=== PATIENT | female | born 1970 | race Caucasian/White ===

== ENCOUNTER 2020-03-22 15:01 | Outpatient (CLI) | payer OTHER, SELFPAY ==
--- NOTE | ~2020-03-22 | MM_ITS ---
EXAMINATION: MM screening joanna BI w delgado HISTORY: Screening mammogram TECHNIQUE: Craniocaudal and mediolateral oblique 3-D tomosynthesis images were obtained and synthetic 2-D images were generated. CAD analysis was submitted and interpreted. COMPARISON: 10/05/2016 bilateral digital screening mammogram BREAST PARENCHYMAL COMPOSITION: The breasts are heterogeneously dense, which may obscure small masses . FINDINGS: Stable mild asymmetry. Occasional benign calcifications.. There is no evidence of suspiciou s mass, calcification, or architectural distortion to suggest malignancy in either breast. There has been no suspicious interval change. IMPRESSION: 1. No mammographic evidence of malignancy. 2. Recommend routine screening mammography in one year. BI-RADS Category 2: Benign finding(s). Reviewed, dictated and finalized at location A. [employer]
== END 2020-03-22 15:02 | disposition home or self-care (01) ==
LOC: ANHIMG 15:04
PROVIDERS: PCP Obstetrics & Gynecology; Visit Provider Obstetrics & Gynecology
DX: Z12.31 Encounter for screening mammogram for malignant neoplasm of breast (principal)
CPT/HCPCS: 77063; 77067

== ENCOUNTER 2021-09-10 16:07 | Outpatient (CLI) | payer OTHER, SELFPAY ==
--- NOTE | ~2021-09-10 | US_ITS ---
EXAMINATION: US pelvic complete w TV DATE: 09/10/2021 17:28 INDICATION: Postmenopausal bleeding. Patient has IUD. Comparison:No prior studies for comparison. TECHNIQUE: Multiple transabdominal and endovaginal sonographic images of the pelvis performed. FINDINGS: The uterus measures 7.7 x 5.2 x 4.3 cm. There is an IUD in the endometrium. There is a uter ine fibroid at the fundus measuring 2.6 x 2.4 x 1.8 cm. The endometrial complex measures 3.5 mm. The right ovary measures 2 x 2.5 x 1 cm and the left ovary measures 3.1 x 2.3 x 1.2 cm. There are sm all follicles in each ovary. Normal doppler signal in both ovaries. There is no free fluid in the pelvis. There are no abnormal masses seen on either side. IMPRESSION: 1. Uterine fibroid at the fundus measuring up to 2.6 cm. 2: IUD in expected position in the endometrium. Reviewed, dictated and finalized at location A.
== END 2021-09-10 16:08 | disposition home or self-care (01) ==
PROVIDERS: PCP Obstetrics & Gynecology
DX: N95.0 Postmenopausal bleeding (principal); D25.9 Leiomyoma of uterus, unspecified; Z97.5 Presence of (intrauterine) contraceptive device
CPT/HCPCS: 76830; 76856

== ENCOUNTER 2023-08-27 01:40 | Day surgery (SDC) | payer OTHER, SELFPAY ==
[2023-08-23 13:00] VITALS: BMI 32.3
--- NOTE | 2023-08-23 13:07 | PC.NURSE ---
Report to the Outpatient Waiting Room, entrance under the green pavilion located off [facility], at time _0600_ on date _[id number]_. Planned Procedure Time: _0730_. Time changes happen often and if your time is changed the preop area will call you the afternoon before. - You and your visitor will be asked to self-screen and do not enter if you have any COVID symptoms. - A mask is optional within the hospital at this time. Patients may have clear liquids (water, carbonated beverages, clear teas, apple juice) until 3 hours prior to surgery with a maximum of 20 ounces. - No food from midnight until time of surgery Take the following medications with a SIP of water the morning of surgery: __None DO NOT STOP ANY OF YOUR OTHER PRESCRIPTION MEDICATIONS PRIOR TO SURGERY ?EXCEPT THE FOLLOWING Medications to discontinue per physician ____None Date to take last dose Please no make-up, nail bolivian, hairspray, perfume, deodorant, or body powder the day of surgery. No jewelry (including any body piercings) or valuables the day of surgery, leave them at home. Please take a shower or bath the night before, or the morning of, surgery with an antibacterial soap. Wear comfortable, loose fitting clothing. - Jewelry must be removed prior to entering the operating room. Rings and piercings that are not removed may be cut off. - The hospital will not accept responsibility for valuables. - Please leave all valuables, including medications, at home the day of surgery. If you are going home after surgery, a licensed services delivery driver must drive you home. - NO public transportation without another adult if you receive anesthesia. - We recommend that an adult stay with you for 24 hours following discharge. - We also recommend that you do not drive, make important decision, drink alcoholic beverages, or take any drugs that were not prescribed by your health care provider for at least 24 hours after your discharge time. Follow any additional instructions given to you from your surgeon. If you or anyone in your household have experienced Covid symptoms in the past week, please notify your surgeon or the nurse liaison at the phone number below for possible testing. Telephone instructions given to _Mayra__and asked if any additional questions and then verbalized understanding. Patient advised to call surgeon office or pre surgery nurse liaison [phone] if any additional questions.
[2023-08-27 06:46] VITALS: BP 141/88; PULSE 70; RESP 14; TEMP 36.6; O2SAT 97
[2023-08-27 06:49] VITALS: BMI 32.4
[2023-08-27] MEDS: LACTATED RINGERS 1,000 ML 30 ML IV CONT (06:50)
--- NOTE | 2023-08-27 07:09 | P.PNAN_ITS ---
Anes - Initial Pre Proc Eval Procedure: Operation Date: 08/27/23 07:30 Proposed Procedures p Decompression of the Second Intermetatarsal Neuroma with Possible Excision Left Foot - Jorge Dobbs Jr., DPM Date/Time: 08/27/23 07:09 Surgeon: Jorge Dobbs Jr., DPM Pre Op Diagnosis: Neuroma Left Foot Patient Data Age: 52 Gender: F Height: 1.68 m Weight: 91.25 kg Last Vital Signs Temp 98 F 08/27/23 06:46 Pulse 70 08/27/23 06:46 Resp 14 08/27/23 06:46 BP 141/88 H 08/27/23 06:46 Pulse Ox 97 08/27/23 06:46 O2 Del Method Room Air 08/27/23 06:46 Allergies Allergy/AdvReac Type Severity Reaction Status Date / Time erythromycin base AdvReac Unknown Nausea Verified 08/27/23 06:40 Home Medications Medication Instructions Recorded Confirmed Type fezolinetant 45 mg tablet (Veozah) 45 mg PO DAILY 08/27/23 08/27/23 History Patient hx anesthesia problems: none Family hx anesthesia problems: none Results Review: All pre-operative results and documents have been reviewed as part of the pre- operative evaluation. [facility] Family History Family History (Updated 04/29/16 @ 21:22 by DOCTOR UNKNOWN) Other Hypertension Social History Social History Smoking status: Never smoker Alcohol intake: current Drinks per week: 4 Living arrangements: with family Spiritual care concerns: No Anes - Eval Final PreProcedure Day of Procedure 08/27/23 07:09 Patient weight: obese Heart: regular rate and rhythm Lungs: clear to auscultation Airway: Mallampati scale class II Neurological: alert and oriented Last oral intake: >/= 8 hours ASA classification: II Emergent: no Anesthetic plan: proceed Anesthesia type and monitoring: general GIVS and standard monitoring Results Review: All pre-operative results and documents have been reviewed as part of the pre- operative evaluation. Informed Consent: The patient's anesthetic plan and its attendant risks and benefits were discussed with the patient/family/POA. Questions were solicited and answers provided to the satisfaction of the patient/family/POA.
--- NOTE | 2023-08-27 07:10 | WPDHPUPDATE1 ---
History and Physical Update Update Date/Time: 08/27/23 07:10 History and Physical has been reviewed, including an updated exam of the patient. There are NO changes in the patient's condition. Risks, benefits, and alternatives have been discussed and questions answered. Patient agrees to proceed with procedure.
[2023-08-27] MEDS: ceFAZolin 2 GM/D5W 50 ML 2 GM/50 ML BAG IVPB (07:29)
[2023-08-27] MEDS: LIDOCAINE HCL 2% LOCAL INJ 20 ML VIAL 10 ML INFILTRATE (07:49)
--- NOTE | 2023-08-27 08:13 | P.OP_ITS ---
Procedure Note - Detailed Date of Procedure 08/27/23 Pre-op Diagnosis Neuroma second intermetatarsal space left Foot Post-op Diagnosis Same Procedure Performed Decompression and excision of second intermetatarsal space neuroma left foot Surgeon Jorge Dobbs Jr., DPM Anesthesia MAC and Local Indications Pain to the second intermetatarsal space left foot Findings Significantly hypertrophied second intermetatarsal/ interdigital proper digital nerve Description of Procedure Under mild sedation, the patient was brought in to the operating room, placed on the operating table in the supine position. A pneumatic ankle tourniquet was placed about the patient's ipsilateral ankle. Following IV sedation, local anesthesia was obtained about the ankle utilizing 20 mL of 0.5% Marcaine plain and 2% Lidocaine plain to with an ankle ring block. The foot was then scrubbed, prepped, and draped in the usual aseptic manner. An Esmarch bandage was then used to exsanguinate the patient's foot and the pneumatic ankle tourniquet was then inflated. An incision was made along the dorsal second interdigital/intermetatarsal space. All bleeders were cauterized as necessary. The Deep transverse intermetatarsal ligament was severed. Next, dissection was continued deep to the proper digital plantar nerve which was hypertrophied and amorphous. It was dissected proximal to the central metatarsal shaft area and transected next the distal branches were dissected and transected to the affected second and third digits. The neural tissue was sent for gross and histopathology. The Deep subcutaneous tissue was reapproximated with 4.0 Vicryl and the skin was reapproximated with 4.0 Monocryl. Upon completion of the procedure, the dorsal incision was dressed with Steri- Strips, Adaptic, 4x4s, Kerlix, and Coban. The pneumatic ankle tourniquet was then deflated and a prompt hyperemic response was noted to all digits of the affected foot. A CAM walker boot will then be applied. The patient did very well with the procedure and the anesthesia. The patient was transferred to the recovery room with vital signs stable and vascular status intact to all toes of the affected foot. Following a period of postoperative monitoring, the patient will be discharged home on the following written and oral postoperative instructions: 1. The patient should keep the dressing clean, dry, and intact. Use a cast protector bag with showers. 2. The patient will be strictly protected weight bearing with a surgical shoe. 3. Patient should ice and elevate the foot when at rest. 4. The patient is to contact Dr. Dobbs for all postop care and if any problems arise. 5. Prescriptions were written for Percocet 5/325 to be taken 1 p.o. q.4-6 hours as needed for severe pain. Implants None Estimated Blood Loss 1 Drains No Packing No Pathology Yes (hypertrophied neural tissue sent for gross and histopathology) Complications No immediate complications Condition Stable Disposition Same day
[2023-08-27 08:18] VITALS: BP 115/74; PULSE 63; RESP 12; O2SAT 94
[2023-08-27 08:50] VITALS: BP 133/89; PULSE 51; RESP 16; O2SAT 95
[2023-08-27 09:05] VITALS: BP 148/92; PULSE 55; RESP 16
[2023-08-27 09:25] VITALS: BP 142/83; PULSE 57; RESP 16
== END 2023-08-27 09:27 | disposition home or self-care (01) ==
PROVIDERS: Visit Provider Podiatrist Foot & Ankle Surgery
PROC: (CPT 28080; principal; 2023-08-27 07:30)
DX: G57.62 Lesion of plantar nerve, left lower limb (principal); E66.9 Obesity, unspecified; Z68.32 Body mass index [BMI] 32.0-32.9, adult
CPT/HCPCS: 28080; 88304; J0690; J1100; J2250; J2405; J2704; J3010; J7120